=== PATIENT | female | born 1995 | race Hispanic/Latino ===

== ENCOUNTER 2016-12-30 12:59 | Emergency (ER) | payer SELFPAY ==
[~2016-12-30] VITALS: Ht 149.9 cm; Wt 52.7 kg
[2016-12-30 13:04] VITALS: BP 65/36; PULSE 89; RESP 18; O2SAT 99
--- NOTE | 2016-12-30 13:10 | ED.REPORT ---
HPI-NVD Date of Service Dec 30, 2016 ED Provider: Kacy Macias History of Present Illness: diarrhea and vomiting since last night. nausea. decreased appitete. on flagyl and doxycycline started Monday, told she had chalymadia. had injection in buttocks. did not have 4 pills. [facility] [place] [facility]. primary care is no one. work in [employer]. went home ill today. Nursing Notes Stated Complaint: VOMITING Chief Complaint: Female Abdominal Pain Nursing Notes Reviewed: Yes Allergies: Coded Allergies: No Known Allergies (Verified Allergy, Unknown, 08/13/15) No Active Prescriptions or Reported Meds General Time Seen by MD: 13:09 Chief Complaint Nausea, Vomiting, Diarrhea Hx Obtained From: Patient Onset Occurred: Yesterday Symptom Duration: Since onset Past Medical History Past Medical History eczema (usually on arms, neck, and buttocks) Past Surgical History denies Smoking History Never Smoker Social History Alcohol Use: Denies alcohol use Drug Use: Denies drug use Occupation lives by self, work at [employer] 12/30/2016 Ambulatory Status Independent Review of Systems Basic Review of Systems Eyes: Vision NL, No discharge : No dysuria, No frequency Endocrine: No cold intolerance, No heat intolerance, No weight gain, No weight loss Psychiatric: Normal thought content Physical Exam Initial Vital Signs Vital Signs (First) Date Time Temp Pulse Resp B/P Pulse Ox O2 Delivery O2 Flow Rate FiO2 12/30/16 13:04 36.9 89 18 65/36 99 Room Air Initial VS: Reviewed, Vital signs normal Head / Eyes: Atraumatic, Normocephalic, PERRL ENT: Mucous membranes moist, Conjunctiva normal, No scleral icterus Neck: Supple, Non-tender, Full range of motion Respiratory: Breath sounds normal, Clear to auscultation, No respiratory distress Cardiovascular: Regular rate & rhythm, Heart sounds normal, Intact distal pulses Back: No CVA tenderness Lymphatic: No lymphadenopathy Extremities: Vascular intact, Neuro intact, No swelling, No tenderness Skin: Warm, Dry, No cyanosis Neurologic: Alert, Oriented, Nonfocal Psychiatric: Mood/affect normal, Behavior normal, Normal thought content General/Constitutional: Awake, Alert, No acute distress, Well appearing, Well developed, Well hydrated, Well nourished, Cooperative, Not toxic appearing Abdomen: Atraumatic, Soft, Non-tender, McBurney's non-tender, No guarding, No rebound, BS normoactive, No distention Respiratory / Chest: Atraumatic, Breath sounds NL, Breath sounds = bilat, No respiratory distress Cardiovascular: Heart rate NL, Regular rhythm, Heart sounds NL, No gallop, No murmurs Back: Atraumatic, Inspection NL, Full range of motion, Painless range of motion Interpretation & Diagnostics Interpretation & Diagnostics: OCEDURE: US PELVIC SONOGRAM WITH TRANSVAG AND DOPPLER INDICATIONS: pelvic pain TECHNIQUE: Real-time scanning was performed of the pelvic organs, with image documentation. Additional endovaginal scanning was necessary due to incomplete visualization of the adnexal and endometrial structures by transabdominal scanning. COMPARISON: None. FINDINGS: (orthogonal measurements) Uterus size: 5.99 cm, 2.64 cm, 3.67 cm Endometrium thickness: 1.80 mm Right ovary size: 2.24 cm, 1.88 cm Left ovary size: 2.04 cm, 1.21 cm, 1.94 cm Transabdominal scanning: Limited scanning through the kidneys shows no hydronephrosis. No pathologic free abdominal or pelvic fluid. Endovaginal scanning: Uterus: Uterus is normal in size and appearance. Endometrium is within normal physiologic limits. Ovaries: Within normal physiologic limits. IMPRESSION: No source for pelvic pain identified sonographically. Dictated by: Ignacio Bull [facility] Interpreted: Jacquie Hudson MD on 12/30/2016 at 15:59 Approved by: Jacquie Hudson M.D. on 12/30/2016 at 16:25 Lab Results Interpretation Result Diagram: 12/30/16 1329 12/30/16 1329 Test 12/30/16 13:29 12/30/16 14:32 White Blood Count 6.3th/mm3 (3.8-10.1) Red Blood Count 4.62mil/mm3 (3.90-5.20) Hemoglobin 13.4g/dL (12.0-15.6) Hematocrit 38.8% (35.0-46.0) Mean Corpuscular Volume 84.0fL (81-100) Mean Corpuscular Hemoglobin 29.0pg (27.0-35.0) Mean Corpuscular Hemoglobin Concent 34.5% (32.0-37.0) Red Cell Distribution Width 12.9% (12.3-15.4) Platelet Count 216bil/L (150-400) Neutrophils (%) (Auto) 58.8% (40-74) Lymphocytes (%) (Auto) 27.8% (14-46) Monocytes (%) (Auto) 10.6% (4-12) Eosinophils (%) (Auto) 1.3% (0-5) Basophils (%) (Auto) 1.0% (0-3) Sodium Level 139mEq/L (134-144) Potassium Level 3.3mEq/L (3.5-5.2) Chloride Level 104mEq/L (97-108) Carbon Dioxide Level 19mmol/L (18-29) Blood Urea Nitrogen 12mg/dL (6-20) Creatinine 0.56mg/dL (0.57-1.00) Estimat Glomerular Filtration Rate 192mL/min (>59) Glucose Level 105mg/dL (60-99) Calcium Level 9.5mg/dL (8.5-10.1) Total Bilirubin 0.4mg/dL (0.0-1.2) Aspartate Amino Transf (AST/SGOT) 22U/L (0-50) Alanine Aminotransferase (ALT/SGPT) 18U/L (0-32) Alkaline Phosphatase 149U/L (25-150) Total Protein 7.6g/dL (6.4-8.4) Albumin 4.7g/dL (3.4-5.0) Re-Eval/Medical Decision Med Decision/Clinical Course 21 year old female presents to the ER with vomiting and diarrhea since last evening. Patient states she started on flagyl and doxycycline on Monday for [facility]dia [facility] Urine does not show any infection, labs are normal. No sign of torsion or etopic . Discharge & Departure Impression: Primary Impression: Vomiting and diarrhea Disposition: Home Patient Instructions: Acute Diarrhea (ED), Acute Nausea and Vomiting (ED) Additional Instructions: Your labs are looking good. The urine looks good. You have been treated for chlamydia. I think the flagyl and the doxycycline are causing the vomiting and diarrhea. Please stop those medications. You can use zofran 4 mg ODT for the next day or two if needed. Please establish in primary care, consider the [facility]. REturn with any concerns. Referrals: [facility] EDSupervising Provider for APC: Veto Simon MD copies to: [facility] Kacy Macias Dec 30, 2016 13:10
[2016-12-30 13:25] VITALS: BP 127/68; PULSE 80; RESP 14; O2SAT 98
[2016-12-30] MEDS ORDERED: Ondansetron 2 mg/mL 2 mL Inj IVPUSH ONE (13:25)
[2016-12-30] MEDS ORDERED: 0.9% Sodium Chloride 1,000 ML IV ONE (13:25)
[2016-12-30 13:38] LABS: EOSINOPHILS % (AUTO) 1.3 % (0-5); MONOCYTES % (AUTO) 10.6 % (4-12); NEUTROPHILS % (AUTO) 58.8 % (40-74); Platelet Count 216 bil/L (150-400)
[2016-12-30] MEDS ORDERED: cefTRIAXone Inj 1,000 MG in Dextrose 5% Minibag Plus 50 ML IV ONE (14:55)
--- NOTE | 2016-12-30 16:27 | DRSVH ---
PROCEDURE: US PELVIC SONOGRAM WITH TRANSVAG AND DOPPLER INDICATIONS: pelvic pain TECHNIQUE: Real-time scanning was performed of the pelvic organs, with image documentation. Additional endovagi nal scanning was necessary due to incomplete visualization of the adnexal and endometrial structures by transabdominal scanning. COMPARISON: None. FINDINGS: (orthogonal measurements) Uterus size: 5.99 cm, 2.64 cm, 3.67 cm Endometrium thickness: 1.80 mm Right ovary size: 2.24 cm, 1.88 cm Left ovary size: 2.04 cm, 1.21 cm, 1.94 cm Transabdominal scanning: Limited scanning through the kidneys shows no hydronephrosis. No pathologi c free abdominal or pelvic fluid. Endovaginal scanning: Uterus: Uterus is normal in size and appearance. Endometrium is within normal physiologic limits. Ovaries: Within normal physiologic limits. IMPRESSION: No source for pelvic pain identified sonographically. Dictated by: Ignacio CHUNG Interpreted: Jacquie Hudson MD on 12/30/2016 at 15:59 Approved by: Jacquie Hudson M.D. on 12/30/2016 at 16:25
[2016-12-30 17:28] VITALS: PULSE 80; RESP 18; O2SAT 100
== END 2016-12-30 17:29 | disposition home or self-care (01) ==
LOC: SED 12:59
DX: R11.2 Nausea with vomiting, unspecified (principal); R19.7 Diarrhea, unspecified; R63.0 Anorexia; A74.9 Chlamydial infection, unspecified
CPT/HCPCS: 36415; 76830; 76856; 80053; 81025; 85025; 87491; 87591; 93975; 96361; 96365; 96375; 99285; J0696; J2405; J7030